=== PATIENT | female | born 1990 | race African-American/Black ===

== ENCOUNTER 2017-03-31 01:02 | Observation (INO) | payer OTHER ==
--- NOTE | ~2017-03-31 | OR ---
Unit #: [id number] #: [id number] Patient: CLAUS GONZALES [id number] [address] [place], [place] [address] [id number] I MR#: [id number] NAME: CLAUS GONZALES ROOM: 461 Date of Procedure: 03/31/2017 Admission Date: 03/31/2017 Surgeon: Uri Edwards III, M.D. : 1990 Attending Physician: Esequiel Storey Jr., M.D. OPERATIVE REPORT PREOPERATIVE DIAGNOSIS Acute cholecystitis. POSTOPERATIVE DIAGNOSIS Acute cholecystitis. PROCEDURE PERFORMED Laparoscopic cholecystectomy. ANESTHESIA General. SPECIMENS Gallbladder to Pathology. COMPLICATIONS None apparent. INDICATIONS FOR PROCEDURE This is a 26-year-old lady, who presented with acute abdominal pain and had gallstones and elevated white blood count. She is here today for laparoscopic cholecystectomy. DESCRIPTION OF PROCEDURE After consent was obtained, the patient was brought to the operating room and placed in the supine position. General anesthetic was administered and her abdomen was prepped and draped in standard surgical fashion. I made a 5-mm incision in the right upper quadrant. I used an Optiview to enter into the peritoneal cavity without any difficulty. CO2 pneumoperitoneum was then established. Next, a second 5-mm port was placed in the supraumbilical region. An 11-mm port was placed in mid epigastric region and a third 5-mm port was placed in the right lateral subcostal region. I began by retracting the gallbladder superiorly and laterally. I dissected out the cystic duct and cystic artery and after these were carefully identified, I placed two clips proximally and one clip distally along both structures and then divided them. The gallbladder was then taken off the liver bed using the hook cautery. There was a small amount of bile that was spilled that was removed with a gauze Ray-Jenaro at the end of the case. The gallbladder was then extracted through the epigastric port site without dilatation of the fascia. I had excellent hemostasis and all needle, sponge, and instrument counts were correct x2. I injected all the port sites with 0.25% plain Marcaine. I Unit #: [id number] #: [id number] Patient: CLAUS GONZALES removed the trocars and released the pneumoperitoneum. The incisions were all reapproximated with interrupted 4-0 Vicryl subcuticular suture. Steri-Strips were then applied. The patient tolerated the procedure without any problems and returned to the recovery room in stable condition. Dictated by... Uri Edwards III, M.D. VCL/fei TD: 03/31/2017 15:05 JOB #: [id number] OPERATIVE REPORT Page 1 of 1 X Uri Edwards III, MD PROCEDURE OPERATIVE NOTE
--- NOTE | ~2017-03-31 | CT2 ---
[facility] A Service of [facility] RADIOLOGY TEXT RESULTS PATIENT: CLAUS GONZALES LOCATION: [facility] 20072-32 : [birth year] UNIT #: [id number] AGE: [address]: Esequiel Storey MD SEX: F ORDER DR: [id number] [facility] [address] [facility]. [place], [place] [address] [id number] I MR#: [id number] Acc #: [id number] NAME: CLAUS GONZALES : 1990 SEX: F STUDY DATE/TIME: 03/31/2017 4:31 UNIT: CED ROOM: 35970 STUDY DESCRIPTION: CT Abd and Pelv W Cont Attending Physician: Esequiel Storey Jr., M.D. Ordering Physician: Brian Salvador D.O. Primary Care Physician: Primary Care Physician No MEDICAL IMAGING REPORT This report is preliminary unless electronic signature is present EXAM CT abdomen and pelvis, 03/31 INDICATION Upper abdominal pain with nausea and vomiting that started today. TECHNIQUE Axial images were obtained through the abdomen and pelvis following IV contrast administration. Multiplanar reformats were obtained. This CT exam was performed with one or more of the following radiation dose reduction techniques: automatic exposure control, adjustment of mA and/or kV according to patient size, and iterative reconstruction. COMPARISON No comparison. FINDINGS ABDOMEN: The lung bases are clear. Gallbladder is distended and it does contain a stone. It is otherwise unremarkable. No biliary obstruction identified. Solid organs are normal. No adenopathy or free fluid is seen. The unopacified GI tract is grossly normal. PELVIS: The appendix is normal. The remainder of the unopacified GI tract is normal as well. The solid pelvic organs are normal. Urinary bladder is normal. There is no free fluid. There is bilateral sacroiliitis. IMPRESSION 1. Mildly distended but otherwise normal-appearing gallbladder containing a gallstone. 2. Normal unopacified GI tract, including the appendix. [facility] A Service of [facility] RADIOLOGY TEXT RESULTS PATIENT: CLAUS GONZALES LOCATION: [facility] [address]12-01 : [birth year] UNIT #: [id number] AGE: [address]: Esequiel Storey MD SEX: F ORDER DR: Dictated by... Valentin Rose Jr., M.D. THIS IS AN ELECTRONICALLY VERIFIED REPORT Valentin Rose Jr., M.D. at 03/31/2017 11:28 AM JERAMY/thang TD: 03/31/2017 10:14 JOB #: [id number] MEDICAL IMAGING REPORT Page 1 of 1 COPY
--- NOTE | ~2017-03-31 | BMI ---
[facility] Nutrition Therapy DATE: 04/01/17 Patient: CLAUS THURMAN JANET Physician: SIGRID Address: [address] [place] [address] Room/Bed: [address] [place] [address], Zip: [place] [address] Admit Date: 03/31/17 Date of : [birth year] Height: 5 0 Weight: 210 95.45 HIGH BMI NOTE: ANTHROPOMETRICS: HT: 5'0" WT: 95.45 KG BMI: 41.1 DIET: REGULAR DIET RECOMMENDATIONS: 1. ADD A HEART HEALTHY DIET RESTRICTION IN ORDER TO PROMOTE GRADUAL WEIGHT LOSS TOWARDS A HEALTHY BMI. Respectfully, MARIANO SOFIA RD, LD Food and Nutritional Services [facility] cc: client file
--- NOTE | ~2017-03-31 | CR72 ---
[facility] A Service of [facility] & [facility] RADIOLOGY TEXT RESULTS PATIENT: CLAUS GONZALES LOCATION: [facility] [address]79-80 : [birth year] UNIT #: [id number] AGE: [address]: Esequiel Storey MD SEX: F ORDER DR: [id number] [facility] [address] [facility]. [place], [place] [address] [id number] I MR#: [id number] Acc #: [id number] NAME: CLAUS GONZALES : 1990 SEX: F STUDY DATE/TIME: 03/31/2017 2:08 UNIT: [facility] ROOM: 15530 STUDY DESCRIPTION: CR Chest Single View Portable Attending Physician: Esequiel Storey Jr., M.D. Ordering Physician: Brian Salvador D.O. Primary Care Physician: Primary Care Physician No MEDICAL IMAGING REPORT This report is preliminary unless electronic signature is present EXAM Portable chest 03/31 INDICATIONS Epigastric and chest pain for 1 day. FINDINGS AP portable chest was obtained. No comparison. The heart is mildly enlarged. Lungs are clear. Vascularity is normal. No pneumothorax. IMPRESSION Cardiomegaly. No active disease. Dictated by... Valentin Rose Jr., M.D. THIS IS AN ELECTRONICALLY VERIFIED REPORT Valentin Rose Jr., M.D. at 03/31/2017 11:27 AM JERAMY/augustin TD: 03/31/2017 09:44 JOB #: [id number] MEDICAL IMAGING REPORT Page 1 of 1 COPY
--- NOTE | ~2017-03-31 | HP ---
Unit #: [id number] #: [id number] Patient: CLAUS GONZALES [id number] [address] [address] [id number] I MR#: [id number] NAME: CLAUS GONZALES ROOM: 57388 Age: 26 Sex: F Admission Date: 03/31/2017 : 1990 Attending Physician: Esequiel Storey Jr., M.D. Primary Care Physician: No Primary Care Physician HISTORY AND PHYSICAL REVISED REOPORT CHIEF COMPLAINT Nausea, vomiting and diarrhea with chest pain. HISTORY OF PRESENT ILLNESS The patient is a 26-year-old obese black female who has been having significant pain in her mid epigastrium and chest area along with some nausea and vomiting over the past couple of days. She denies any fatty food intolerance. She does have four children and has been in normal in good health otherwise. She has had no history for jaundice, hepatitis, pancreatitis, or peptic ulcer disease. She is a nonsmoker, nondrinker. PAST MEDICAL HISTORY Serious illnesses none. PAST SURGICAL HISTORY None in the past. SOCIAL HISTORY The patient is single, nonsmoker, nondrinker. The patient has a normal good appetite. No recent weight change. FAMILY HISTORY Noncontributory. ALLERGIES None known. MEDICATIONS None chronically. TRANSFUSIONS None in the past. IMMUNIZATIONS Up to date. REVIEW OF SYSTEMS A 10-system review has been performed which is unremarkable except noted in the present illness. PHYSICAL EXAMINATION GENERAL APPEARANCE: The patient is a well-developed, well-nourished, Unit #: [id number] #: [id number] Patient: CLAUS GONZALES 26-year-old black female who is somewhat obese in no acute distress. VITAL SIGNS: Temperature 98.9. Pulse 86. Respiration 16. Blood pressure 141/86. HEENT: Unremarkable. Sclerae are anicteric. NECK: Supple. CHEST: There is equal bilateral expansion with bilateral good breath sounds. LUNGS: Clear bilaterally. HEART: Regular rhythm without murmurs or gallops. There is no evidence of cardiomegaly clinically. ABDOMEN: Soft, mildly to moderately tender in the mid epigastrium, right upper quadrant without mass or organomegaly. There is no gross abdominal distension. No guarding or rebound. Active bowel sounds present. No evidence of ascites or hernias. EXTREMITIES: Full range of motion without limitation no phlebitis. BACK: There is no CVA tenderness. NEUROLOGIC: Grossly intact. DIAGNOSTIC STUDIES LABORATORY: WBC count is elevated. IMAGING: CT compatible with cholecystitis with cholelithiasis. IMPRESSION The patient likely has acute or subacute cholecystitis with cholelithiasis. The plan would be to go ahead with laparoscopic cholecystectomy. I have discussed the surgery including the risks including that of common duct injury, biliary leak, bleeding and intraabdominal organ injury and the patient understands and consents. Dictated by Esequiel Storey Jr., M.D. DALI/amalia TD: 03/31/2017 06:34 JOB #: [id number] HISTORY AND PHYSICAL Page 1 of 1 X Esequiel Storey MD X HISTORY AND PHYSICAL
[2017-03-31 02:39] LABS: BASOPHIL% 0.1 % (0-2.5); HEMATOCRIT 37.7 % (35.0-45.0); LYMPHOCYTE# 1.5 X10e3 (1.0-3.5); LYMPHOCYTE% 9.3 % (17.0-45.0); MEAN CELL VOLUME 83.4 FL (83-96); MEAN CORPUSCULAR HEMOGLOBIN 26.5 PG (28-34); MEAN CORPUSCULAR HGB CONC 31.7 g/dL (30-36); MEAN PLATELET VOLUME 7.4 FL (6.5-11.5); MONOCYTE# 0.3 X10e3 (0-1.0); MONOCYTE% 2.1 % (3.0-12.0); NEUTROPHIL# 13.9 X10e3 (1.5-7.1); NEUTROPHIL% 88.5 % (40-75); PLATELET COUNT 232 X10e3 (140-420); RED BLOOD COUNT 4.52 X10e (3.90-5.30); RED CELL DISTRIBUTION WIDTH 13.2 % (11.0-15.5); WHITE BLOOD COUNT 15.7 X10e3 (4.0-10.5)
[2017-03-31 02:40] LABS: DIFF IND YES
[2017-03-31 03:02] LABS: ALBUMIN SERUM 4.5 g/dL (3.5-5.0); BILIRUBIN, DIRECT 0.1 mg/dL (0.0-0.2); BILIRUBIN,INDIRECT 0.6 mg/dL (0.0-0.9); BILIRUBIN,TOTAL 0.7 mg/dL (0.2-2.0); BUN/CREATININE RATIO 28.33; CREATININE SERUM 0.6 mg/dL (0.6-1.4); GLOM FILT RATE Estimated 147.9 mL/min (>60); POTASSIUM 3.7 mmol/L (3.5-5.1); PROTEIN TOTAL SERUM 8.3 g/dL (6.0-8.3)
[2017-03-31 03:11] LABS: URINE SOURCE CLEAN CATCH
[2017-03-31 03:15] LABS: URINE APPEARANCE CLEAR; URINE BILIRUBIN NEG (NEG); URINE BLOOD 2+ (NEG); URINE COLOR YELLOW; URINE GLUCOSE NEG (NEG); URINE KETONE NEG (NEG); URINE LEUKOCYTE ESTERASE 2+ (NEG); URINE NITRATE NEG (NEG); URINE PROTEIN 2+ (NEG); URINE SPECIFIC GRAVITY 1.029 (1.003-1.035)
[2017-03-31 03:18] LABS: CULTURE INDICATED? YES; URBCS1 AUWI 100-200 /[HPF] (0-2); URINE BACTERIA AUWI 1+ (NEGATIVE); URINE SQUAMOUS EPITHELIAL CELL NONE SEEN /[HPF]; UWBCS1 AUWI 25-50 (0-5)
[2017-03-31 03:21] LABS: POC - CKMB <1.0 ng/mL (0.0-7.9); POC - TROPONIN <0.05 ng/mL (<=0.05)
[2017-03-31 03:27] LABS: PLATELET ESTIMATE NORMAL (NORMAL)
[2017-03-31 03:28] LABS: RBC NORMAL YES
[2017-03-31 03:31] LABS: URINE PH 9.5 (5-8)
[2017-04-01 04:17] LABS: ALBUMIN SERUM 3.7 g/dL (3.5-5.0); BILIRUBIN,TOTAL 0.5 mg/dL (0.2-2.0); BUN/CREATININE RATIO 8.57; CALCIUM SERUM 8.4 mg/dL (8.4-10.2); CREATININE SERUM 0.7 mg/dL (0.6-1.4); GLOM FILT RATE Estimated 140.5 mL/min (>60); PROTEIN TOTAL SERUM 7.3 g/dL (6.0-8.3)
[2017-04-01 04:22] LABS: BASOPHIL# 0.1 X10e3 (0-0.3); BASOPHIL% 0.4 % (0-2.5); EOSINOPHIL% 0.1 % (0.0-7.0); HEMATOCRIT 38.2 % (35.0-45.0); HEMOGLOBIN 12.1 gm/dL (12.0-16.0); LYMPHOCYTE# 2.5 X10e3 (1.0-3.5); MEAN CELL VOLUME 83.8 FL (83-96); MEAN CORPUSCULAR HEMOGLOBIN 26.6 PG (28-34); MEAN CORPUSCULAR HGB CONC 31.7 g/dL (30-36); MEAN PLATELET VOLUME 7.8 FL (6.5-11.5); MONOCYTE# 0.7 X10e3 (0-1.0); MONOCYTE% 5.5 % (3.0-12.0); NEUTROPHIL# 9.9 X10e3 (1.5-7.1); PLATELET COUNT 212 X10e3 (140-420); RED BLOOD COUNT 4.56 X10e (3.90-5.30); RED CELL DISTRIBUTION WIDTH 13.5 % (11.0-15.5); WHITE BLOOD COUNT 13.2 X10e3 (4.0-10.5)
[2017-04-01 04:23] LABS: DIFF IND NO
[2017-04-01] MEDS ORDERED: HYDROCODON-ACE1 EAC5 PO (07:52)
== END 2017-04-01 10:00 | disposition home or self-care (01) ==
LOC: CED 01:02 → CEDOF 05:25 → CED 05:29 → C4C 13:38 → CEDOF 13:38 → C4C 04-01 10:00
PROVIDERS: Emergency Medicine; Surgery
DX: K80.10 Calculus of gallbladder with chronic cholecystitis without obstruction (principal); I51.7 Cardiomegaly
CPT/HCPCS: 36415; 71010; 74177; 80048; 80053; 80076; 81003; 82553; 83690; 84484; 84703; 85025; 87086; 88304; 96361; 96365; 96374; 96375; 96376; 99285; G0378; J0330; J1100; J2250; J2270; J2405; J2543; J2550; J2710; J3010; Q9967